=== PATIENT | female | born 1995 ===

== ENCOUNTER 2017-12-26 00:05 | Inpatient (IN) | payer OTHER ==
[2017-12-26] MEDS ORDERED: BENZOCAINE 20% 57 GM BOTTLE TP PRN (00:36)
[2017-12-26] MEDS ORDERED: BISACODYL 10 MG SUPP.RECT RC PRN (00:36)
[2017-12-26] MEDS ORDERED: METHYLERGONOVINE MALEATE 0.2 MG/1 ML AMP IM PRN (00:36)
[2017-12-26] MEDS ORDERED: WITCH HAZEL 50% (TUCKS) 40 PAD/JAR PAD TP PRN (00:36)
[2017-12-26] MEDS ORDERED: BENZOCAINE 28 GM HEMORRHOIDAL OINTMENT TP PRN (00:36)
--- NOTE | 2017-12-26 00:36 | PN ---
Delivery - Delivery Vaginal Delivery: No Problems Type of Anesthesia: None Episiotomy/Laceration: None EBL (cc): 200 (Pt delivereed with Noemi and suprapubic and delivery of posterior shoulder)
[2017-12-26] MEDS ORDERED: OXYTOCIN 10 UNITS/ML VIAL IM ONE (00:38)
[2017-12-26] MEDS: OXYTOCIN 20 UNITS in 0.9% NS 20 UNIT/1,000 ML INFUS.BAG IV SCH ×2 (00:40→06:01)
[2017-12-26 01:15] LABS: ARTERIAL BLOOD GAS BASE EXCESS -3.2 meq/l (-2-2); ARTERIAL BLOOD GAS PCO2 58.5 mmHg (35-45); ARTERIAL BLOOD GAS PO2 15.5 mmHg (80-100); ARTERIAL BLOOD GAS pH 7.25 (7.35-7.45)
[2017-12-26 01:17] LABS: VENOUS PC02 37.9 mmHg (38-52); VENOUS PH 7.37 (7.32-7.42); VENOUS PO2 34.2 mmHg (28-48)
[2017-12-26 01:32] VITALS: BMI 24.6
[2017-12-26 01:39] LABS: BASO % 0.2 % (0-2.0); EOS % 0.7 % (0-4.5); HEMATOCRIT 33.2 % (32.4-45.2); HEMOGLOBIN 10.3 GM/dL (10.7-15.3); LYMPH % 9.6 % (8-40); MCH 21.1 pg (25.7-33.7); MCHC 31.1 g/dl (32.0-36.0); MEAN CELL VOLUME 67.8 fl (80-96); MEAN PLT VOLUME 8.1 fl (7.5-11.1); NEUT % 85.5 % (42.8-82.8); PLATELET COUNT 264 K/MM3 (134-434); RBC 4.89 M/mm3 (3.60-5.2); RDW 19.6 % (11.6-15.6); WHITE BLOOD COUNT 11.4 K/mm3 (4.0-10.0)
[2017-12-26] MEDS: ACETAMINOPHEN 325 MG TABLET (FP) PO PRN ×2 (01:40→12:44)
[2017-12-26] MEDS: IBUPROFEN 600 MG TABLET (FP) PO PRN ×2 (01:40→12:43)
[2017-12-26] MEDS ORDERED: IBUPROFEN 600 MG TABLET (FP) PO ONE (01:41)
[2017-12-26] MEDS ORDERED: ACETAMINOPHEN 325 MG TABLET (FP) ONE (01:41)
[2017-12-26 01:54] LABS: ANION GAP 9 MMOL/L (8-16); BLOOD UREA NITROGEN 6 mg/dL (7-18); CALCIUM 8.7 mg/dL (8.5-10.1); CHLORIDE 106 mmol/L (98-107); CO2 23 mmol/L (21-32); CREATININE 0.4 mg/dL (0.55-1.3); GLUCOSE,RANDOM 96 mg/dL (74-106); POTASSIUM 4.2 mmol/L (3.5-5.1); SODIUM 138 mmol/L (136-145)
[2017-12-26 02:12] LABS: INR 0.96 (0.83-1.09); PROTHROMBIN TIME (PATIENT) 11.3 SEC (9.7-13.0)
[2017-12-26 02:15] LABS: ACTIVATED PTT 22.9 SECONDS (25.2-36.5)
[2017-12-26 03:49] LABS: COCAINE, UR NEGATIVE ng/ml (CUTOFF=300); METHADONE, UR NEGATIVE ng/ml (CUTOFF=300); OPIATES, URI NEGATIVE ng/ml (CUTOFF=300); PHENCYCLIDINE,URINE NEGATIVE ng/ml (CUTOFF=25); URINE AMPHETAMINES NEGATIVE ng/ml (CUTOFF=500); URINE BARBITURATES NEGATIVE ng/ml (CUTOFF=200); URINE BENZODIAZEPINES NEGATIVE ng/ml (CUTOFF=200)
[2017-12-26] MEDS ORDERED: OXYTOCIN 20 UNITS in 0.9% NS 20 UNIT/1,000 ML INFUS.BAG IV ONE (05:58)
[2017-12-26 07:19] LABS: ANISOCYTOSIS 1+
[2017-12-26] MEDS: PRENATAL VITAMINS W/ FOLIC ACID TABLET (FP) PO SCH (09:29)
--- NOTE | 2017-12-26 10:18 | HP ---
Past Medical History - Admission History of Present Illness: 22yo presented in active labor and delivered within 20min of admission. Called after pt delivered - Past Medical History ...: 2 ...Para: 1 ...Term: 1 ...: 0 ...Spon : 0 ...Induced : 0 ...Multiple Gestation: 0 ...LMP: 03/31/17 ... Weeks Gestation by Dates: 38.4 ...EDC by Dates: 01/05/18 ...EDC by Sono: 01/05/18 - Smoking History Smoking history: Never smoked Have you smoked in the past 12 months: No - Alcohol/Substance Use Hx Alcohol Use: No Home Medications - Allergies Allergies/Adverse Reactions: Allergies Allergy/AdvReac Type Severity Reaction Status Date / Time No Known Allergies Allergy Verified 12/26/17 02:57 - Home Medications Home Medications: Ambulatory Orders Vitamins (Sjr) - 1 tab PO DAILY 12/26/17 Physical Exam - Maternity Vital Signs: Vital Signs Temperature 97.9 F 12/26/17 07:30 Pulse Rate 69 12/26/17 07:30 Respiratory Rate 18 12/26/17 07:30 Blood Pressure 121/72 12/26/17 07:30 O2 Sat by Pulse Oximetry (%) 99 12/26/17 00:45 - Labs Lab Results: CBC, BMP 12/26/17 01:09 12/26/17 01:09
--- NOTE | 2017-12-26 10:18 | DS ---
Physical Exam-[employer]ER Vital Signs: Vital Signs Temperature 97.9 F 12/26/17 07:30 Pulse Rate 69 12/26/17 07:30 Respiratory Rate 18 12/26/17 07:30 Blood Pressure 121/72 12/26/17 07:30 O2 Sat by Pulse Oximetry (%) 99 12/26/17 00:45 Labs: CBC, BMP 12/26/17 01:09 12/26/17 01:09 Delivery - Delivery Vaginal Delivery: No Problems Type of Anesthesia: None Episiotomy/Laceration: None EBL (cc): 250 Delivery, Single - Stages of Labor Date 1st Stage Initiatied: 12/25/17 Time 1st Stage Initiated: 16:00 Date 2nd Stage Initiated: 12/26/17 Time 2nd Stage Initiated: 00:15 Date of Delivery: 12/26/17 Time of Delivery: 00:26 Time Placenta Delivered: 00:29 - 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
[2017-12-27] MEDS: ACETAMINOPHEN 325 MG TABLET (FP) PO PRN ×2 (01:36→17:10)
[2017-12-27] MEDS: IBUPROFEN 600 MG TABLET (FP) PO PRN ×3 (01:37→17:09)
[2017-12-27] MEDS: OXYTOCIN 20 UNITS in 0.9% NS 20 UNIT/1,000 ML INFUS.BAG IV SCH (01:41)
[2017-12-27 08:04] LABS: BASO % 0.8 % (0-2.0); HEMATOCRIT 28.7 % (32.4-45.2); HEMOGLOBIN 8.7 GM/dL (10.7-15.3); LYMPH % 39.1 % (8-40); MCH 20.8 pg (25.7-33.7); MCHC 30.5 g/dl (32.0-36.0); MEAN CELL VOLUME 68.2 fl (80-96); MEAN PLT VOLUME 7.9 fl (7.5-11.1); MONO % 5.6 % (3.8-10.2); NEUT % 50.5 % (42.8-82.8); PLATELET COUNT 244 K/MM3 (134-434); RDW 20.1 % (11.6-15.6); WHITE BLOOD COUNT 6.9 K/mm3 (4.0-10.0)
[2017-12-27] MEDS: PRENATAL VITAMINS W/ FOLIC ACID TABLET (FP) PO SCH (09:11)
[2017-12-27] MEDS ORDERED: SENNOSIDES/DOCUSATE COMBO (SENNA PLUS) TABLET (UD) PO PRN (22:00)
[2017-12-28] MEDS: IBUPROFEN 600 MG TABLET (FP) PO PRN ×2 (01:20→08:03)
[2017-12-28] MEDS: ACETAMINOPHEN 325 MG TABLET (FP) PO PRN ×2 (01:20→08:02)
[2017-12-28 08:28] VITALS: BP 117/76; PULSE 68; TEMP 97.8
[2017-12-28] MEDS: PRENATAL VITAMINS W/ FOLIC ACID TABLET (FP) PO SCH (09:12)
--- NOTE | 2017-12-28 12:20 | PN ---
Progress Note (short form) - Note Progress Note: ppd 2 doing well ,no c/o CBC, BMP 12/27/17 07:10 12/26/17 01:09 Last Vital Signs Temp Pulse Resp BP Pulse Ox 97.8 F 68 18 117/76 99 12/28/17 08:25 12/28/17 08:25 12/28/17 08:25 12/28/17 08:25 12/26/17 00:45 uterus firm, non tender lochia mild no calf tenderness plan d/c home ,follow up [facility] 4 weeks
== END 2017-12-28 15:20 | disposition home or self-care (01) | DRG 560 ==
LOC: JLDR 00:05 → J3W 03:22
PROVIDERS: ADMIT Obstetrics & Gynecology; ATTEND Obstetrics & Gynecology
PROC: 10E0XZZ Delivery of Products of Conception, External Approach (ICD-10-PCS; principal; 2017-12-26)
DX: O80 Encounter for full-term uncomplicated delivery (principal); Z3A.38 38 weeks gestation of pregnancy; Z37.0 Single live birth
CPT/HCPCS: 36415; 36600; 59409; 80048; 80307; 82803; 85025; 85610; 85730; 86593; 86850; 86900; 86901; 87389